=== PATIENT | female | born 1960 | race African-American/Black ===

== ENCOUNTER 2017-05-03 07:23 | Emergency (ER) | payer OTHER ==
[~2017-05-03] VITALS: Ht 162.6 cm; Wt 110.2 kg
[2017-05-03 09:11] LABS: Eosinophils # (auto) 0 uL; Hemoglobin 11.7 g/dL (12.2-16.2); Lymphocytes # (auto) 3.2 uL; Mean Corpuscular Volume 85.2 fL (80.0-100.0); Monocytes # (auto) 0.4 uL
[2017-05-03 09:12] LABS: Basophils # (auto) 0.1 uL; Basophils % (auto) 1.2 % (0.0-2.0); Eosinophils % (auto) 0.6 % (0.0-7.0); Hematocrit 36.4 % (36.0-46.0); Lymphocytes % (auto) 39.5 % (10.0-50.0); Mean Corpuscular Hemoglobin 27.4 pg (28.0-32.0); Mean Corpuscular Hgb Conc. 32.1 g/dL (32.0-36.0); Monocytes % (auto) 4.6 % (0.0-12.0); Neutrophils # (auto) 4.4 uL; Neutrophils % (auto) 54.1 % (37.0-80.0); Nucleated Red Blood Cells % 0.2 %; Platelet Count (auto) 419 10^3/uL (140-450); Red Blood Cells 4.27 10^6/uL (4.0-5.20); Red Cell Distribution Width 18.4 % (11.8-14.3); White Blood Cell 8.1 10^3/uL (4.4-10.8)
[2017-05-03 09:31] LABS: Albumin 3.8 g/dL (3.4-5.0); BUN/Creatinine Ratio 12.4; Calcium 9.2 mg/dL (8.5-10.1); Potassium 3.6 mmol/L (3.5-5.1)
[2017-05-03 09:33] LABS: Bilirubin, Total 0.3 mg/dL (0.2-1.0); Total Protein 8.7 g/dL (6.4-8.2)
[2017-05-03 10:07] LABS: Urine Bacteria NONE SEEN /hpf (None Seen); Urine Blood 3+ /uL (Negative); Urine Mucus FEW (None Seen); Urine Specific Gravity 1.029 (1.001-1.035); Urine WBC 61 /hpf (0 - 5)
[2017-05-03 11:30] VITALS: BP 152/66
== END 2017-05-03 12:36 | disposition home or self-care (01) ==
LOC: ER 07:23
DX: B37.3 Candidiasis of vulva and vagina (principal); I10 Essential (primary) hypertension; Z90.710 Acquired absence of both cervix and uterus; Z88.0 Allergy status to penicillin; Z88.5 Allergy status to narcotic agent; Z88.6 Allergy status to analgesic agent
CPT/HCPCS: 36415; 76830; 76856; 80053; 81001; 85025